=== PATIENT | male | born 1945 | race Caucasian/White ===

== ENCOUNTER 2016-11-17 16:31 | Emergency (ER) | payer MEDICARE, OTHER ==
[~2016-11-17] VITALS: Wt 105.0 kg
[2016-11-17] MEDS ORDERED: SOD CHLORIDE 0.9% 1,000 ML IV STA (21:12)
[2016-11-17] MEDS ORDERED: ONDANSETRON 4 MG INJ IV STA (21:12)
[2016-11-17] MEDS ORDERED: DIAZEPAM 5 MG/ML SYG IV ONE (21:30)
[2016-11-17] MEDS ORDERED: MECLIZINE 12.5 MG TAB PO ONE (21:30)
--- NOTE | 2016-11-17 21:34 | ERD ---
ER Documentation Chief Complaint Date/Time DATE: 11/17/16 TIME: 21:31 Chief Complaint DIZZY SINCE LAST NIGHT HPI Patient is a pleasant 71-year-old gentleman who comes in reporting dizziness since last night. He describes the dizziness as a spinning sensation. It is worse when he stands up and moves. It is better when he lays down flat. He denies any paresthesias or focal weakness. He denies any head trauma, fever, congestion, chest pain, coughing, rhinorrhea, sore throat, otalgia, or tinnitus. He states he has never experienced this before. He also denies any visual changes, slurred speech, abdominal pain, diarrhea, dysuria, hematuria, flank pain, abnormal bleeding, bruises, or rashes. He has had nausea and vomiting associated with it. He says his symptoms are actually a little improved since last night. Initially he thought it was food poisoning. The remainder of the systems are negative. ROS All systems reviewed and are negative except as per history of present illness. PMhx/Soc History of Surgery: Yes (left knee x 2, ab hernia repair) Anesthesia Reaction: No Hx Neurological Disorder: No Hx Respiratory Disorders: No Hx Psychiatric Problems: No Hx Miscellaneous Medical Probl: No Hx Alcohol Use: No Hx Substance Use: No Hx Tobacco Use: No Smoking Status: Unknown if ever smoked FmHx Family History: No coronary disease, No diabetes Physical Exam Vitals Vital Signs Date Time Temp Pulse Resp B/P Pulse Ox O2 Delivery O2 Flow Rate FiO2 11/17/16 22:25 53 16 158/82 65 171/97 65 174/97 11/17/16 16:33 98.0 59 18 205/89 99 Physical Exam Const: [] Well-developed well-nourished male lying on the bed no acute distress Head: Atraumatic normocephalic Eyes: Normal Conjunctiva, pupils equally round reactive to light, extraocular motions are intact, no nystagmus noted ENT: Normal External Ears, Nose and Mouth., TMs are clear bilaterally Neck: Full range of motion..~ No meningismus. Resp: Clear to auscultation bilaterally Cardio: Regular rate and rhythm, no murmurs Abd: Soft, non tender, non distended. Normal bowel sounds no masses, rebound , or guarding noted Skin: No petechiae or rashes Back: No midline or flank tenderness Ext: No cyanosis, or edema Neur: Awake and alert, oriented 3, GCS of 15, cranial nerves II through XII are intact, strength is 5 out of 5 in both upper and lower extremities and are symmetric, finger to nose is intact and equal bilaterally Psych: Normal Mood and Affect Result Diagram: 11/17/16211411/17/162114 Results 24 hrs Laboratory Tests Test 11/17/16 21:15 Activated Partial Thromboplast Time 29.4Sec Alanine Aminotransferase (ALT/SGPT) 20IU/L Albumin 4.6g/dl Albumin/Globulin Ratio 1.24 Alkaline Phosphatase 84IU/L Anion Gap 20 Aspartate Amino Transf (AST/SGOT) 25IU/L Basophils # 0.010^3/ul Basophils % 0.2% Blood Urea Nitrogen 27mg/dl Calcium Level 9.3mg/dl Carbon Dioxide Level 26mmol/L Chloride Level 104mmol/L Creatinine 1.02mg/dl Direct Bilirubin 0.00mg/dl Eosinophils # 0.010^3/ul Eosinophils % 0.1% Globulin 3.70g/dl Glucose Level 113mg/dl Hematocrit 40.2% Hemoglobin 13.3g/dl INR International Normalized Ratio 0.91 Indirect Bilirubin 0.2mg/dl Lymphocytes # 2.610^3/ul Lymphocytes % 22.9% Mean Corpuscular Hemoglobin 29.4pg Mean Corpuscular Hemoglobin Concent 33.1g/dl Mean Corpuscular Volume 88.7fl Mean Platelet Volume 11.5fl Monocytes # 0.410^3/ul Monocytes % 3.8% Neutrophils # 8.110^3/ul Neutrophils % 72.1% Nucleated Red Blood Cells # 0.010^3/ul Nucleated Red Blood Cells % 0.0/100WBC Platelet Count 77472^3/UL Potassium Level 3.3mmol/L Prothrombin Time 12.3Sec Prothrombin Time Ratio 1.0 Red Blood Count 4.5310^6/ul Red Cell Distribution Width 13.2% Sodium Level 147mmol/L Total Bilirubin 0.2mg/dl Total Protein 8.3g/dl Troponin I < 0.012ng/ml White Blood Count 11.210^3/ul Current Medications Medications (Trade) Dose Ordered Sig/Damian Route PRN Reason Start Time Stop Time Status Last Admin Dose Admin Sodium Chloride (NS) 1,000 ml @ 1,000 mls/hr Q1H STAT IV 11/17/16 21:12 11/17/16 22:11 DC 11/17/16 21:28 Diazepam (Valium) 5 mg ONCE ONCE IV 11/17/16 21:30 11/17/16 21:31 DC 11/17/16 21:28 Meclizine HCl (Antivert) 25 mg ONCE ONCE PO 11/17/16 21:30 11/17/16 21:31 DC 11/17/16 21:28 Ondansetron HCl (Zofran Inj) 4 mg ONCE STAT IV 11/17/16 21:12 11/17/16 21:16 DC 11/17/16 21:27 Procedures/MDM Differential includes vertigo, dizziness of unclear etiology, cardiac arrhythmia , dehydration, electrolyte disturbance, brain tumor, stroke, orthostasis EKG: Rate/Rhythm: Normal Sinus Rhythm at 55 bpm with a first-degree block , no evidence of acute ischemia, no old EKG available for comparison QRS, ST, T-waves: No changes consistent w/ acute ischemia Impression: No evidence of ischemia or arrhythmia Chest x-ray does not reveal any acute cardiopulmonary process CAT scan of the head shows some mild calcifications in the frontal lobe possibly evident with burned-out sister psychosis per the radiologist. There are no findings that would suggest a cause for the patient's symptoms according to the radiologist. No acute intracranial process Patient does not tilt on his orthostatics 2245: Patient states he feels much better at this time. He is dynamically stable. He is able to ambulate although he is dizzy. He has been given precautions about how to sit up, stand up, and then walk. Hopefully an attempt to prevent him from falling and hurting himself. I have advised him to follow- up with his primary care physician in approximately 2-3 days for recheck or return immediately to the emergency department if he develops any new or worsening symptoms. I will set this discussion with his daughter stated that she would keep an eye on him and bring him back immediately if there were any new or worsening symptoms. Departure Diagnosis: Primary Impression: Vertigo Condition: Good Patient Instructions: Vertigo, Unspecified Additional Instructions: Please be careful when changing positions as this can cause her to become dizzy and fall. No driving, climbing, swimming, or any other activities where he might hurt herself or hurt other people should you become dizzy. You should see some gradual improvement over the next 1-2 weeks. Please see your primary care physician within the next week for recheck. Return immediately to the emergency department if he develop any weakness of an arm or leg, chest pain, headache, or new worsening symptoms. HOLLY OBRIEN Nov 17, 2016 21:34
--- NOTE | 2016-11-17 21:43 | RADRPT ---
PROCEDURE: XR Chest. CLINICAL INDICATION: Chest pain. TECHNIQUE: Single frontal view. COMPARISON: None. FINDINGS: The lungs are clear. The heart is mildly enlarged. There is no pleural effusion. There is no pneumothorax. IMPRESSION: 1. Mild cardiomegaly. 2. Clear lungs. RPTAT: QQ .Albino Monk MD, MD Date Time Electronically viewed and signed by .Albino Monk MD, MD on 11/17/2016 21:43 .R/
[2016-11-17 22:05] LABS: ADD SCAN DIFF NO
[2016-11-17 22:15] LABS: BASOPHILS % 0.2 % (0.0-2.0); EOSINOPHILS % 0.1 % (0.0-7.0); HEMATOCRIT 40.2 % (42.0-52.0); HEMOGLOBIN 13.3 g/dl (14.0-18.0); LYMPHOCYTES # 2.6 10^3/ul (0.8-2.9); LYMPHOCYTES % 22.9 % (15.0-51.0); MEAN CORPUSCULAR HEMOGLOBIN 29.4 pg (29.0-33.0); MEAN CORPUSCULAR HGB CONC 33.1 g/dl (32.0-37.0); MEAN CORPUSCULAR VOLUME 88.7 fl (82.0-101.0); MEAN PLATELET VOLUME 11.5 fl (7.4-10.4); MONOCYTE # 0.4 10^3/ul (0.3-0.9); MONOCYTES % 3.8 % (0.0-11.0); NEUTROPHIL # 8.1 10^3/ul (1.6-7.5); NEUTROPHILS % 72.1 % (39.0-77.0); PLATELET COUNT 242 10^3/UL (140-415); RED BLOOD COUNT 4.53 10^6/ul (4.70-6.10); RED CELL DISTRIBUTION WIDTH 13.2 % (11.5-14.5); WHITE BLOOD COUNT 11.2 10^3/ul (4.8-10.8)
--- NOTE | 2016-11-17 22:23 | RADRPT ---
PROCEDURE: CT brain without contrast CLINICAL INDICATION: Dizziness TECHNIQUE: A CT of the brain was performed utilizing axial sections from the skull base through th e vertex without contrast. Sagittal and coronal images were also reformatted. The exam CTDIvol = 41. 59 mGy and DLP = 720.23 mGy-cm. COMPARISON: None available FINDINGS: No acute intracranial hemorrhage is identified. There is no mass effect or midline shift. No extra -axial fluid collection is seen. The ventricles and sulci are slightly larger in size and configura tion for the patient's provided age of 71 years consistent with mildly advanced generalized atrophy. 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 Aguayo-white differentiation is pr eserved with no findings to suggest an acute ischemic infarct. The fourth ventricle is midline and there is no density alteration within the nisha or cerebellum. The osseous structures are unremarkable. The mastoid air cells and visualized paranasal sinuses are clear. RPTAT:HJJR IMPRESSION: 1. Mildly advanced atrophy for the patient's provided age with no evidence of acute intracranial abn ormality or findings to explain the patient's provided history. 2. 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 Physician Eddie Date Time Electronically viewed and signed by Physician Eddie on 11/17/2016 22:23 JR/
[2016-11-17 22:25] VITALS: BP 174/97; PULSE 65; RESP 16
[2016-11-17 22:27] LABS: ALBUMIN 4.6 g/dl (3.3-4.9); CHLORIDE 104 mmol/L (97-110); INR 0.91; POTASSIUM 3.3 mmol/L (3.5-5.1); PROTIME 12.3 Sec (12.2-14.2); SODIUM 147 mmol/L (135-144)
[2016-11-17 22:28] LABS: PARTIAL THROMBOPLASTIN TIME 29.4 Sec (25.0-35.0)
[2016-11-17 22:30] LABS: ALANINE AMINOTRANSFERASE 20 IU/L (13-69); ALBUMIN/GLOBULIN RATIO 1.24; ALKALINE PHOSPHATASE 84 IU/L (42-121); ANION GAP 20 (8-16); ASPARTATE AMINO TRANSFERASE 25 IU/L (15-46); BILIRUBIN,INDIRECT 0.2 mg/dl (0-1.1); BILIRUBIN,TOTAL 0.2 mg/dl (0.2-1.3); BLOOD UREA NITROGEN 27 mg/dl (7-20); CARBON DIOXIDE 26 mmol/L (21-31); CREATININE 1.02 mg/dl (0.61-1.24); GLUCOSE 113 mg/dl (70-220); TOTAL PROTEIN 8.3 g/dl (6.1-8.1)
[2016-11-17 22:31] LABS: CALCIUM 9.3 mg/dl (8.4-10.2)
[2016-11-17 22:43] LABS: TROPONIN-I < 0.012 ng/ml (0.00-0.12)
[2016-11-17] MEDS ORDERED: ONDA4TAB8 PO (22:50)
[2016-11-17] MEDS ORDERED: DIAZ-90 PO (22:50)
[2016-11-17] MEDS ORDERED: MECL12.574 PO (22:50)
== END 2016-11-17 22:58 | disposition home or self-care (01) ==
LOC: E/R 16:31
DX: R42 Dizziness and giddiness (principal); R11.2 Nausea with vomiting, unspecified; I10 Essential (primary) hypertension; R07.9 Chest pain, unspecified
CPT/HCPCS: 36415; 70450; 71010; 80053; 84484; 85025; 85610; 85730; 93005; 96374; 96375; 99285; J2405; J3360; J7030